=== PATIENT | female | born 1995 | race Caucasian/White ===

== ENCOUNTER → 2024-07-29 06:51 | Outpatient (REF) | payer BC, SELFPAY | LOC: MRI 3T 06:51 | PROVIDERS: ATTENDING PHYSICIAN Physician Assistant | DX: M54.12 Radiculopathy, cervical region (principal) | CPT/HCPCS: 72141 ==

== ENCOUNTER → 2024-09-23 14:12 | Outpatient (REF) | payer BC, SELFPAY | LOC: HWRAD 14:12 | PROVIDERS: ATTENDING PHYSICIAN Physician Assistant | DX: M54.9 Dorsalgia, unspecified (principal); R31.29 Other microscopic hematuria; N92.0 Excessive and frequent menstruation with regular cycle; N94.10 Unspecified dyspareunia | CPT/HCPCS: 76770; 76830; 76856 ==

== ENCOUNTER 2024-09-27 06:38 | Emergency (ER) | payer BC, SELFPAY ==
[2024-09-27 06:40] VITALS: BP 130/80
[2024-09-27 07:05] LABS: % Basophils 0.4 % (0-2); % Eosinophils 1.2 % (0-6); % Immature Granulocytes 0.3 % (0-0.5); % Lymphocytes 25.1 % (20.5-51.1); Absolute Eosinophils 0.1 10^3/uL (0-0.7); Absolute Lymphocytes 2.8 10^3/uL (1.2-3.4); Absolute Monocytes 0.7 10^3/uL (0.1-0.6); Absolute Neutrophils 7.4 10^3/uL (1.4-6.5); Hematocrit 38.2 % (37.0-47.0); Hemoglobin 12.5 g/dL (12.0-16.0); Mean Corp Hgb Conc. 32.7 g/dL (33.0-37.0); Mean Corpuscular Hgb 27.8 pg (27.0-31.0); Mean Corpuscular Volume 85.1 fL (81.0-99.0); Mean Platelet Volume 9.4 fL (7.4-10.4); Nucleated Red Blood Cells % 0 %; Platelet Count 244 10^3/uL (130-400); Red Blood Cell Count 4.49 10^6/uL (4.20-5.40); Red Cell Dist. Width 12.8 % (11.5-14.5)
[2024-09-27 07:11] LABS: HCG, Serum Qualitative Screen Negative
[2024-09-27 07:15] LABS: ALT (SGPT) 17 U/L (0-35); AST (SGOT) 18 U/L (14-36); Albumin 3.7 g/dl (3.5-5.0); Alkaline Phosphatase 51 U/L (38-126); Blood Urea Nitrogen 9 mg/dl (7-17); Calcium 9.5 mg/dl (8.4-10.2); Carbon Dioxide 24 mmol/L (22-30); Chloride 114 mmol/L (98-107); Glucose 92 mg/dl (70-99); Potassium 4.5 mmol/L (3.5-5.1); Sodium 142 mmol/L (135-145); Total Protein 6.7 g/dl (6.3-8.2); eGFR > 60.00
[2024-09-27 08:18] LABS: Urine Albumin Negative (Neg - Trace); Urine Bilirubin Negative (Negative); Urine Character Clear (Clear); Urine Color Yellow; Urine Glucose Negative (Negative); Urine Ketone Negative (Negative); Urine Leukocyte Negative (Negative); Urine Nitrite Negative (Negative); Urine Occult Blood 2+ (Negative); Urine Specific Gravity 1.015 (<1.030); Urine Urobilinogen Negative (Neg - 1+)
--- NOTE | 2024-09-27 09:07 | ED.GENMED ---
History of Present Illness
General
Chief Complaint: Flank Pain
Source: patient
Time Seen by Provider: 09/27/24 09:07
Nursing documentation reviewed up to this point in time: agreed with
History of Present Illness
History of Present Illness:
Patient is a 29-year female who presents to the ER for evaluation. Patient reports last Thursday , 8 days ago she started with frequent urination and UTI symptoms. She saw her family doctor who did outpatient renal bladder ultrasound as well as a
pelvic ultrasound all of which were negative. Patient reports last night she noticed again some blood when she wiped after urinating and also has had some persistent right flank pain. She denies any fever chills nausea vomiting.
Her last menstrual period was at the end of August she is due at the end of September. She denies any injury. She denies any rash recent fever or chills. Denies any vaginal discharge.
Past History
Past History
ED Past Medical History: None
ED Past Surgical History: None
Social History
Tobacco: Non-smoker
Alcohol: None
Drug: None
Living: with family
Review of Systems
Review of Systems
Allergies reviewed?: Yes
All Other Systems: ROS reviewed and negative except as documented in HPI and ROS
Constitutional: Reports no symptoms
Respiratory: Reports no symptoms
Cardiac: Reports no symptoms
ABD/GI: Denies abdominal pain, nausea, vomiting or diarrhea
: Reports flank pain, urgency and bleeding
Musculoskeletal: Reports no symptoms
Skin: Reports no symptoms
Neurological: Reports no symptoms
Hematologic/Lymphatic: Reports no symptoms
Psychiatric: Reports no symptoms
Phy Exam
General Physical Exam
General Presentation: no apparent distress
General age: appears stated age
General Skin: warm and dry
General Habitus: normal
General Mental: alert
Gastrointestinal Exam
Gastrointestinal Exam: non tender and soft
Neurological Exam
Neurological Exam: alert and oriented x3
Musculoskeletal Exam
Musculoskeletal Exam: full ROM
Skin Exam
Skin Exam: normal color and warm/dry
Psychiatric Exam
Psychiatric Exam: normal mood/affect
Course
Orders/Labs/Results
Orders:
Orders
09/27/24 06:44
Test Result ONCE
09/27/24 06:47
Complete Blood Count/With Diff Urgent
Comprehensive Metabolic Panel Urgent
HCG, Serum Qualitative Screen Urgent
09/27/24 07:40
Urinalysis Urgent
Date Specimen was Collected: 09/27/24
Time Specimen was Collected: 06:44
Urine Microscopic Urgent
Date Specimen was Collected: 09/27/24
Time Specimen was Collected: 06:44
09/27/24 09:36
CT Abd/pelvis W Iv Cont Urgent
Comment:
Reason For Exam: r flank pain
Abnormal Lab Results
09/27/24 09/27/24
06:47 07:40
WBC 11.0 H 10^3/uL
(4.8-10.8)
MCHC 32.7 L g/dL
(33.0-37.0)
Absolute Neuts (auto) 7.4 H 10^3/uL
(1.4-6.5)
Absolute Monos (auto) 0.7 H 10^3/uL
(0.1-0.6)
Chloride 114 H mmol/L
(98-107)
Urine Occult Blood 2+ A
(Negative)
Urine RBC 3-6 A /HPF
(0-2)
09/27/24 06:47
09/27/24 06:47
Vital Signs
Initial and Last Documented VS:
Initial Vital Signs
Temp Pulse Resp BP Pulse Ox
98.1 F 84 20 130/80 100
09/27/24 06:40 09/27/24 06:40 09/27/24 06:40 09/27/24 06:40 09/27/24 06:40
Last Documented Vital Signs
Temp Pulse Resp BP Pulse Ox
98.5 F 78 12 142/67 98
09/27/24 09:30 09/27/24 09:30 09/27/24 09:30 09/27/24 09:30 09/27/24 09:30
MDM/Problems Addressed
Differential Diagnosis Includes:
Not limited to UTI, less likely pyelo-nephritis , renal colic
MDM/Problems Addressed:
Patient is a 29-year-old female who complains of dysuria. She had an outpatient workup including ultrasounds which was negative and urinalysis and has had persistent right flank pain which is what prompted patient to come to the ER. She is awake
alert no acute distress no rash no recent fever chills CAT scans unremarkable, patient does have mild colonic stool burden may reflect constipation. Patient denies any fever chills white count 5 minimally elevated, stable hemoglobin normal
electrolytes urine negative for infection. No acute causes of patient's symptoms may be a component of constipation however stable for discharge home with outpatient follow-up family doctor
*Critical Care Note
Total Time (30-74mins, 75-104mins- exclusive of procedures): Not Applicable
Data Reviewed
Review of Other/Old Records Reveals: Other (Renal ultrasound and pelvic transvaginal ultrasound reviewed from September 23)
ED Attending Note
-
Portions of this chart may have been created with voice recognition software.� Occasional wrong word or��sound alike� substitutions may have occurred due to the inherent limitations of voice recognition software.
Discharge Plan
Departure
Patient Disposition: Home (Routine Discharge)
Date of Disposition: 09/27/24
Time of Disposition: 11:45
Patient with high blood pressure during this ER visit?: Yes
Condition: Fair
Covid-19: Not Applicable
Discharge Problem:
Flank pain, Hematuria
Instructions: Blood in the urine (hematuria) in adults, Flank pain - ED discharge instructions
Prescriptions:
No Action
ondansetron 4 MG tablet,disintegrating
4 mg PO TIDPRN PRN (Reason: nausea/vomiting) Qty: 12 0RF
Referrals:
Goldie Trotter PA [Family Provider] -
Activity Restrictions/Additional Instructions:
As discussed CAT scans were negative for acute finding; there is mild constipation.
No other acute causes for your pain were identified in the workup here in the ER. Please follow-up with family doctor for reevaluation of your symptoms. In addition it is recommended that you have a repeat urinalysis in the next week.
Return if any worsening of symptoms
Interventions
Interventions:
*Risk Screen - Suicide Last Done: 09/27/24 06:40
*General Assessment Last Done: 09/27/24 09:30
*Neglect/Abuse Screening Last Done: 09/27/24 06:40
*ED- Fall Risk Assessment Last Done: 09/27/24 09:30
*ED COVID-19 Vaccine History Last Done: 09/27/24 09:30
BH-Eezczx-Tejmgadqga Assessment Last Done: 09/27/24 09:30
ED-Female Genitourinary Assessment Last Done: 09/27/24 09:30
ED-Musculoskeletal Assessment Last Done: 09/27/24 09:30
Discharge Date and Time
Print Language: GUINEAN
[2024-09-27 09:09] LABS: Urine Amorphous Seen
[2024-09-27 09:12] LABS: Urine White Cell 0-2 /HPF (0-5)
[2024-09-27 09:21] VITALS: BMI 32.6
[2024-09-27 09:30] VITALS: BP 142/67
== END 2024-09-27 12:30 | disposition home or self-care (01) ==
LOC: EMR 06:38
PROVIDERS: EMERGENCY PHYSICIAN Student in an Organized Health Care Education/Training Program; FAMILY PHYSICIAN Physician Assistant
DX: R10.9 Unspecified abdominal pain (principal); R31.9 Hematuria, unspecified
CPT/HCPCS: 99284; 74177; 80053; 81003; 81015; 84703; 85025; Q9967